=== PATIENT | male | born 1975 | race Caucasian/White ===

== ENCOUNTER 2025-03-10 16:05 | Outpatient (CLI) | payer BC ==
[2025-03-10 16:48] LABS: Hematocrit 47.5 % (38.8-50.0); Hemoglobin 15.4 g/dL (13.5-17.5); Mean Corpuscular Hemoglobin 27.0 pg (27.0-33.0); Mean Corpuscular Volume 83.3 fL (81.2-95.1); Platelet Count 279 10x3/uL (150-450); Red Blood Cell (RBC) Count 5.70 10x6/uL (4.32-5.72); White Blood Cell (WBC) Count 9.77 10x3/uL (3.5-10.5)
[2025-03-10 16:54] LABS: Anion Gap 17 mmol/L (10-20); BUN (Urea Nitrogen) 13 mg/dL (8.9-20.6); Calc. Creatinine Clearance 0 mL/min (70-130); Calcium 9.5 mg/dL (7.8-10.44); Carbon Dioxide 21 mmol/L (22-29); Chloride 108 mmol/L (98-107); Glucose 88 mg/dL (70-105); Potassium 4.6 mmol/L (3.5-5.1); Sodium 141 mmol/L (136-145)
== END 2025-03-10 16:06 | disposition home or self-care (01) ==
LOC: CSHLAB 16:05
PROVIDERS: ATTEND Internal Medicine Cardiovascular Disease
DX: Z01.812 Encounter for preprocedural laboratory examination (principal); I25.5 Ischemic cardiomyopathy
CPT/HCPCS: 80048; 85027

== ENCOUNTER 2025-03-28 15:36 | Outpatient (CLI) | payer BC | END 2025-03-28 15:37 | disposition home or self-care (01) | LOC: CSHULT 15:36 | PROVIDERS: ATTEND Internal Medicine Cardiovascular Disease | DX: R60.0 Localized edema (principal) ==